=== PATIENT | male | born 1940 | race Caucasian/White ===

== ENCOUNTER 2016-09-23 23:22 | Inpatient (IN) | payer MEDICARE, OTHER ==
[~2016-09-23 23:22] MED LIST: ABACAVIR300 M1; ALDACTONE25 M1 PO; ALPRAZOLAM0.25 M3 PO; ALPRAZOLAM0.5 M3 PO; AMIODARONE HCL200 M1 PO; ASPIRIN EC81 MG PO; ASPIRIN325 M3 PO; CARVEDILOL3.125 M1 PO; CLOPIDOGREL75 M1 PO; COLACE100 M1 PO; COREG3.125 M1 PO; COUMADIN1 M1 PO; COUMADIN2 M1 PO; DEMADEX20 M1 PO; DIGOXIN; DIGOXIN125 MC1 PO; DULCOLAX10 MG PR; FISH OIL 11000 MG/CA PO; FLUTICASONE PRO16 G1; GABAPENTIN; GABAPENTIN400 M3 PO; HYDROCODON-ACE1 EA15 PO; HYDROXYZINE HCL25 M1 PO; IPRAT-ALBUT 0.5-3 ML INH; LANOXIN125 MC3 PO; LASIX40 M1 PO; LOSARTAN; MAGNESIUM OXID400 M1 PO; MEGACE400 MG/11 PO; MEGESTROL ACETA40 M1 PO; MIRALAX17 G2; MIRALAX17 G2 PO; MIRTAZAPINE15 M1 PO; MIRTAZAPINE7.5 M1 PO; MS CONTIN30 M1 PO; NEURONTIN400 M1 PO; NICODERM CQ1 EAC2 TD; NORCO 10-325 T1 EACH PO; PACERONE200 M1 PO; PANTOPRAZOLE SO40 M3 PO; PAROXETINE HCL20 M2 PO; PAXIL10 M1 PO; PAXIL20 M1 PO; PLAVIX75 M1 PO; POTASSIUM CHLO20 ME3 PO; PREDNISONE10 M1 PO; PROTONIX40 M2 PO; QUETIAPINE FUMA50 M2 PO; REMERON15 M1 PO; SEROQUEL100 M2 PO; SPIRONOLACTONE25 M2 PO; TRIAMCINOLONE A15 G2 TOP; TRIAMCINOLONE A15 G2 TP; TRIAMCINOLONE A15 G4 TP; TYLENOL325 M2 PO; VISTARIL25 M1 PO; VITAMIN B COMP1 EAC1 PO; VITAMIN B-150 M1 PO; XANAX0.25 M1 PO; XANAX0.5 M1; XANAX0.5 M1 PO; Z-PACK PO; ZITHROMAX250 M1 PO
[2016-09-23 23:58] LABS: ABG CO2 ARTERIAL 27 mmol/L (21-27); ARTERIAL BLD GAS O2 SATURATION 94 % (95-98); ARTERIAL BLOOD GAS PCO2 41 mmHg (32-45); ARTERIAL PO2 69 mmHg (70-100); BICARBONATE 26 mmol/L (21-28); BLOOD GAS BASE EXCESS 2 mM/L (-/+3); PH 7.41 Units (7.35-7.45)
[2016-09-24 00:09] LABS: BASO % 0.1 % (0-2); EOS % 1.3 % (0-7); EOSINOPHIL ABSOLUTE COUNT 0.1 tho/cmm (0.0-0.7); HCT-HEMATOCRIT 32.6 % (36.0-53.5); HGB-HEMOGLOBIN 10.2 gm/dl (13.5-17.0); IMMATURE GRANULOCYTES ABSOLUTE 0.05 tho/cmm (0-0.03); IMMATURE GRANULOCYTES PERCENT 0.5 % (0-0.3); LYMPH % 13.9 % (20-45); LYMPH ABSOLUTE COUNT 1.5 tho/cmm (0.8-4.5); MCH (MEAN CORPUSCULAR HGB) 30.4 pg (28.0-32.0); MCHC MEAN CORPUSCULAR HGB CONC 31.3 % (32.0-36.0); MCV (MEAN CELL VOLUME) 97.3 fl (82.0-96.0); MEAN PLATELET VOLUME 10.5 cmc (9.4-12.4); MONOCYTE ABSOLUTE COUNT 1.1 tho/cmm (0.0-1.2); NEUTROPHIL ABSOLUTE COUNT 7.8 tho/cmm (1.6-8.0); NEUTROPHIL-AUTOMATED 7.8 tho/cmm (1.6-8.0); NEUTROPHILS % 74.2 % (40-80); PLATELET COUNT 308 tho/cmm (150-450); RED BLOOD COUNT 3.35 mil/cmm (4.40-5.70); RED CELL DISTRIBUTION WIDTH 20.9 % (12.4-16.4); WHITE BLOOD COUNT 10.5 tho/cmm (4.0-10.0)
[2016-09-24 00:14] LABS: INR 1.6 INR (0.9-1.1); PROTHROMBIN TIME 18.7 SECONDS (9.0-13.6)
[2016-09-24 00:44] LABS: ALB/GLOB RATIO 0.8 (0.8-2.0); ALBUMIN 3.2 g/dl (3.5-5.0); ALKALINE PHOSPHATASE 179 U/L (33-138); ALT/SGPT 81 U/L (12-78); ANION GAP 13 mmol/L (0-20); AST/SGOT 55 U/L (10-40); BILIRUBIN,TOTAL 0.6 mg/dl (0.0-1.5); BLOOD UREA NITROGEN 33 mg/dl (6-24); CALCIUM 8.7 mg/dl (8.5-10.5); CARBON DIOXIDE-VENOUS 27 mmol/L (22-32); CHLORIDE 104 mmol/l (96-110); CREATININE 1.12 mg/dl (0.60-1.30); GLUCOSE 154 mg/dL (70-110); POTASSIUM 4.8 mmol/L (3.7-5.1); SODIUM 139 mmol/L (135-145); eGFR VALUE FOR BLACK 75 mL/Min
[2016-09-24] MEDS ORDERED: HYDROCODON-ACE1 EA16 PO (00:48)
[2016-09-24] MEDS ORDERED: MAPAP325 M2 PO (00:49)
[2016-09-24] MEDS ORDERED: MILK OF MAGNESIA PO (00:53)
[2016-09-24] MEDS ORDERED: BISCOLAX10 MG PR (00:56)
[2016-09-24] MEDS ORDERED: POLYETHYLENE G255 G1 PO (01:01)
[2016-09-24] MEDS ORDERED: LEXAPRO10 M2 PO (01:02)
[2016-09-24] MEDS ORDERED: REMERON15 M1 PO (01:03)
[2016-09-24] MEDS ORDERED: ELIQUIS2.5 M1 PO (01:03)
[2016-09-24 01:13] LABS: PROCALCITONIN 0.08 ng/ml (0.05-0.09)
[2016-09-24 05:38] LABS: BASO % 0.3 % (0-2); EOS % 0.7 % (0-7); EOSINOPHIL ABSOLUTE COUNT 0.1 tho/cmm (0.0-0.7); HGB-HEMOGLOBIN 10.1 gm/dl (13.5-17.0); IMMATURE GRANULOCYTES ABSOLUTE 0.07 tho/cmm (0-0.03); IMMATURE GRANULOCYTES PERCENT 0.7 % (0-0.3); LYMPH % 12.2 % (20-45); LYMPH ABSOLUTE COUNT 1.3 tho/cmm (0.8-4.5); MCHC MEAN CORPUSCULAR HGB CONC 30.6 % (32.0-36.0); MCV (MEAN CELL VOLUME) 97.9 fl (82.0-96.0); MEAN PLATELET VOLUME 10.5 cmc (9.4-12.4); MONO % 9.6 % (0-12); NEUTROPHIL ABSOLUTE COUNT 8.2 tho/cmm (1.6-8.0); NEUTROPHIL-AUTOMATED 8.2 tho/cmm (1.6-8.0); NEUTROPHILS % 76.5 % (40-80); PLATELET COUNT 318 tho/cmm (150-450); RED BLOOD COUNT 3.37 mil/cmm (4.40-5.70); RED CELL DISTRIBUTION WIDTH 21.1 % (12.4-16.4); WHITE BLOOD COUNT 10.7 tho/cmm (4.0-10.0)
[2016-09-24 05:57] LABS: ALB/GLOB RATIO 0.7 (0.8-2.0); ALKALINE PHOSPHATASE 171 U/L (33-138); ALT/SGPT 76 U/L (12-78); ANION GAP 12 mmol/L (0-20); AST/SGOT 48 U/L (10-40); BILIRUBIN,TOTAL 0.7 mg/dl (0.0-1.5); BLOOD UREA NITROGEN 34 mg/dl (6-24); C-REACTIVE PROTEIN 3.6 mg/dl (0-0.9); CALCIUM 8.5 mg/dl (8.5-10.5); CARBON DIOXIDE-VENOUS 29 mmol/L (22-32); CHLORIDE 104 mmol/l (96-110); CREATININE 1.13 mg/dl (0.60-1.30); GLUCOSE 150 mg/dL (70-110); MAGNESIUM 2.1 mg/dl (1.3-2.6); POTASSIUM 5.1 mmol/L (3.7-5.1); SODIUM 140 mmol/L (135-145); eGFR VALUE FOR BLACK 74 mL/Min
[2016-09-24 09:04] LABS: ABG CO2 ARTERIAL 27 mmol/L (21-27); ARTERIAL BLD GAS O2 SATURATION 94 % (95-98); ARTERIAL BLOOD GAS PCO2 44 mmHg (32-45); ARTERIAL PO2 74 mmHg (70-100); BICARBONATE 26 mmol/L (21-28); BLOOD GAS BASE EXCESS 1 mM/L (-/+3); PH 7.38 Units (7.35-7.45)
[2016-09-25 06:52] LABS: INR 1.4 INR (0.9-1.1); PROTHROMBIN TIME 16.7 SECONDS (9.0-13.6)
[2016-09-25 07:04] LABS: ANION GAP 11 mmol/L (0-20); BLOOD UREA NITROGEN 37 mg/dl (6-24); CALCIUM 8.7 mg/dl (8.5-10.5); CARBON DIOXIDE-VENOUS 30 mmol/L (22-32); CHLORIDE 103 mmol/l (96-110); CREATININE 1.34 mg/dl (0.60-1.30); GLUCOSE 114 mg/dL (70-110); POTASSIUM 5.1 mmol/L (3.7-5.1); SODIUM 139 mmol/L (135-145); eGFR VALUE FOR BLACK 60 mL/Min
[2016-09-25 12:29] LABS: BASO % 0.1 % (0-2); EOS % 0.2 % (0-7); HCT-HEMATOCRIT 32.8 % (36.0-53.5); HGB-HEMOGLOBIN 10.2 gm/dl (13.5-17.0); IMMATURE GRANULOCYTES ABSOLUTE 0.12 tho/cmm (0-0.03); IMMATURE GRANULOCYTES PERCENT 0.8 % (0-0.3); LYMPH % 8.9 % (20-45); LYMPH ABSOLUTE COUNT 1.3 tho/cmm (0.8-4.5); MCH (MEAN CORPUSCULAR HGB) 30.5 pg (28.0-32.0); MCHC MEAN CORPUSCULAR HGB CONC 31.1 % (32.0-36.0); MCV (MEAN CELL VOLUME) 98.2 fl (82.0-96.0); MEAN PLATELET VOLUME 10.4 cmc (9.4-12.4); MONO % 8.5 % (0-12); MONOCYTE ABSOLUTE COUNT 1.2 tho/cmm (0.0-1.2); NEUTROPHIL ABSOLUTE COUNT 11.6 tho/cmm (1.6-8.0); NEUTROPHIL-AUTOMATED 11.6 tho/cmm (1.6-8.0); NEUTROPHILS % 81.5 % (40-80); PLATELET COUNT 320 tho/cmm (150-450); RED BLOOD COUNT 3.34 mil/cmm (4.40-5.70); RED CELL DISTRIBUTION WIDTH 20.9 % (12.4-16.4); WHITE BLOOD COUNT 14.2 tho/cmm (4.0-10.0)
[2016-09-25 13:01] LABS: ABG CO2 ARTERIAL 29 mmol/L (21-27); ARTERIAL BLD GAS O2 SATURATION 91 % (95-98); ARTERIAL BLOOD GAS PCO2 46 mmHg (32-45); BICARBONATE 27 mmol/L (21-28); BLOOD GAS BASE EXCESS 2 mM/L (-/+3); PH 7.38 Units (7.35-7.45)
[2016-09-25 13:04] LABS: ARTERIAL PO2 64 mmHg (70-100)
--- NOTE | 2016-09-25 18:03 | NUR ---
AGREE WITH STUDENTS CHARTING 3/2
[2016-09-25 18:41] LABS: BODY FLUID TYPE PLEURAL
[2016-09-25 18:46] LABS: BODY FLUID TYPE THORACENTESIS
[2016-09-25 18:55] LABS: BODY FLUID APPEARANCE CLOUDY (CLEAR); BODY FLUID COLOR YELLOW (COLORLESS); BODY FLUID RBC COUNT 2000 cmm (0); BODY FLUID TYPE PLEURAL; BODY FLUID VOLUME 1600 ml; BODY FLUID WBC COUNT 464 cmm
[2016-09-25 18:59] LABS: BODY FLUID LYMPHOCYTES 29 %; BODY FLUID MACROPHAGES 15 %; BODY FLUID MESOTHELIAL CELLS 6 %; BODY FLUID NEUTROPHILS 50 %
[2016-09-25 19:03] LABS: BODY FLUID APPEARANCE CLOUDY (CLEAR); BODY FLUID COLOR YELLOW (COLORLESS); BODY FLUID RBC COUNT 5000 cmm (0); BODY FLUID TYPE PLEURAL; BODY FLUID VOLUME 1100 ml; BODY FLUID WBC COUNT 430 cmm
[2016-09-25 19:05] LABS: BODY FLUID LYMPHOCYTES 26 %; BODY FLUID MACROPHAGES 44 %; BODY FLUID MESOTHELIAL CELLS 3 %; BODY FLUID NEUTROPHILS 27 %
--- NOTE | 2016-09-25 19:12 | NUR ---
POST FALL NOTE PATIENT DENIES PAIN, NO SWELLING/BRUISING/REDDNESS TO RIGHT KNEE.
[2016-09-26 05:03] LABS: BASO % 0.1 % (0-2); HGB-HEMOGLOBIN 9.6 gm/dl (13.5-17.0); IMMATURE GRANULOCYTES ABSOLUTE 0.09 tho/cmm (0-0.03); IMMATURE GRANULOCYTES PERCENT 0.6 % (0-0.3); LYMPH % 12.1 % (20-45); LYMPH ABSOLUTE COUNT 1.7 tho/cmm (0.8-4.5); MCH (MEAN CORPUSCULAR HGB) 30.6 pg (28.0-32.0); MCV (MEAN CELL VOLUME) 98.7 fl (82.0-96.0); MEAN PLATELET VOLUME 10.3 cmc (9.4-12.4); MONO % 8.4 % (0-12); MONOCYTE ABSOLUTE COUNT 1.2 tho/cmm (0.0-1.2); NEUTROPHIL ABSOLUTE COUNT 10.9 tho/cmm (1.6-8.0); NEUTROPHIL-AUTOMATED 10.9 tho/cmm (1.6-8.0); NEUTROPHILS % 78.8 % (40-80); PLATELET COUNT 266 tho/cmm (150-450); RED BLOOD COUNT 3.14 mil/cmm (4.40-5.70); RED CELL DISTRIBUTION WIDTH 20.9 % (12.4-16.4); WHITE BLOOD COUNT 13.9 tho/cmm (4.0-10.0)
[2016-09-26 05:21] LABS: ANION GAP 13 mmol/L (0-20); BLOOD UREA NITROGEN 46 mg/dl (6-24); CALCIUM 8.3 mg/dl (8.5-10.5); CARBON DIOXIDE-VENOUS 28 mmol/L (22-32); CHLORIDE 102 mmol/l (96-110); CREATININE 1.67 mg/dl (0.60-1.30); GLUCOSE 102 mg/dL (70-110); POTASSIUM 5.3 mmol/L (3.7-5.1); SODIUM 138 mmol/L (135-145); eGFR VALUE FOR BLACK 46 mL/Min
[2016-09-26] MEDS ORDERED: IPRAT-ALBUT 0.5-3 ML INH (12:15)
== END 2016-09-26 15:15 | DRG 189 ==
LOC: EDMED 23:22 → EMR2 09-24 02:23 → PCUA 09-24 03:50
PROVIDERS: Emergency Medicine; Hospitalist; Internal Medicine Pulmonary Disease; Registered Nurse; ADMIT Hospitalist
PROC: 0W9B3ZZ Drainage of Left Pleural Cavity, Percutaneous Approach (ICD-10-PCS; principal; 2016-09-25)
PROC: 0W993ZZ Drainage of Right Pleural Cavity, Percutaneous Approach (ICD-10-PCS; 2016-09-25)
DX: J96.01 Acute respiratory failure with hypoxia (principal); I50.41 Acute combined systolic (congestive) and diastolic (congestive) heart failure; E44.0 Moderate protein-calorie malnutrition; I27.2 Other secondary pulmonary hypertension; I48.91 Unspecified atrial fibrillation; J90 Pleural effusion, not elsewhere classified; I07.1 Rheumatic tricuspid insufficiency; I25.10 Atherosclerotic heart disease of native coronary artery without angina pectoris; I10 Essential (primary) hypertension; I35.0 Nonrheumatic aortic (valve) stenosis; I34.2 Nonrheumatic mitral (valve) stenosis; Z79.01 Long term (current) use of anticoagulants; R91.1 Solitary pulmonary nodule; K21.9 Gastro-esophageal reflux disease without esophagitis
CPT/HCPCS: G8978-GP-CJ; G8979-GP-CI; J0780; J1940; J2405; J7040; J7050